=== PATIENT | female | born 1995 | race Caucasian/White ===

== ENCOUNTER 2021-09-14 17:39 | Emergency (ER) | payer OTHER, SELFPAY ==
[2021-09-14 17:47] VITALS: BP 128/87; PULSE 99; RESP 20; TEMP 36.1; O2SAT 100
--- NOTE | 2021-09-14 20:28 | ED.GENADULT ---
HPI - General Adult General Chief complaint: Headache <AYDIN Wagner Last Filed: 09/15/21 01:21> Stated complaint: htn/headahce <AYDIN Wagner Last Filed: 09/15/21 01:21> Time Seen by Provider: 09/14/21 20:02 <AYDIN Wagner Last Filed: 09/15/21 01:21> Source: patient <AYDIN Wagner Last Filed: 09/15/21 01:21> Mode of arrival: ambulatory <AYDIN Wagner Last Filed: 09/15/21 01:21> Limitations: no limitations <AYDIN Wagner Last Filed: 09/15/21 01:21> History of Present Illness HPI narrative: Patient is a 26-year-old female who presents to the ED with report of headache and high blood pressure. Patient is and currently approximately 14 weeks . Her ELECTRICAL TESTER is Dr. Baker. Patient reports having a persistent headache since Monday. She has been taking Tylenol at home without much relief of pain. She also reports having nausea due to the pain. Patient's ELECTRICAL TESTER requested her to take her blood pressure at home today at which point it was 140s over 90s. She was then referred to the ED by her OBGYN for further evaluation. Patient denies a history of previously diagnosed hypertension. She does state her blood pressure was slightly elevated at her 12-week appointment. She is not currently on any anti-hypertensive medications. Patient denies any recent cough or cold symptoms, fever, chills, vomiting, abdominal pain, vaginal bleeding, leakage of fluid, swelling. She is not feeling baby move just yet. <AYDIN Wagner Last Filed: 09/15/21 01:21> Related Data Allergies/adverse reactions: Allergies Allergy/AdvReac Type Severity Reaction Status Date / Time tree nut Allergy Verified 12/14/12 10:52 <AYDIN Wagner Last Filed: 09/15/21 01:21> Review of Systems Review of Systems: CONSTITUTIONAL: Denies fever, chills. ENT: Denies rhinorrhea, congestion, sore throat. CARDIOVASCULAR: Denies chest pain or edema. RESPIRATORY: Denies cough or dyspnea. GASTROINTESTINAL: Reports nausea. Denies abdominal pain, vomiting, or diarrhea. GENITOURINARY: Denies vaginal bleeding, leakage of fluid, dysuria or hematuria. MUSCULOSKELETAL: Denies back pain. NEUROLOGIC: Reports RAMIREZ. Denies numbness, or weakness. <Anna Shelley PA-C - Last Filed: 09/15/21 01:21> All systems reviewed & are unremarkable except as noted in HPI and below <Anna Shelley PA-C - Last Filed: 09/15/21 01:21> PMFSH Past Medical History Medical History: Medical History No pertinent past medical history <Anna Shelley PA-C - Last Filed: 09/15/21 01:21> Surgical History Surgical History: Surgical History (Updated 09/14/21 @ 20:33 by Anna Shelley PA-C) History of tonsillectomy and adenoidectomy <Anna Shelley PA-C - Last Filed: 09/15/21 01:21> Social History Social History: Social History (Updated 09/14/21 @ 20:32 by Anna Shelley PA-C) Smoking status: Never smoker <Anna Shelley PA-C - Last Filed: 09/15/21 01:21> Exam Narrative: GENERAL: Well appearing, well-nourished, non-toxic, in no acute distress. HEAD: Normocephalic, atraumatic. EYES: PERRL/EOMI, conjunctivae clear bilaterally. NECK: Supple. No adenopathy, no masses. RESPIRATORY: Airway patent, respirations nonlabored. Clear to auscultation bilaterally, no rales, rhonchi, wheezing. CARDIOVASCULAR: Regular rate and rhythm without murmurs, rubs, or gallops. Peripheral pulses 2+ and equal bilaterally. ABDOMINAL: Soft, nontender, uterus gravid, nondistended, no hepatosplenomegaly. Normoactive BS. MUSCULOSKELETAL: Moves all extremities. Strength/ROM intact without gross deformities or TTP. No edema. No calf tenderness. SKIN: Warm, dry, normal color. No rashes. NEURO: A&O X3. Speech clear. Cranial nerves II-XII grossly intact. Steady gait. No ataxic movements. PSYCHIATRIC: Appropriate mood and affect. Normal interact
[2021-09-14 20:34] VITALS: BP 130/91; PULSE 86; RESP 13; O2SAT 99
[2021-09-14] MEDS: SODIUM CHLORIDE 0.9% IV 1,000 ML 999 ML IV CONT (21:13)
[2021-09-14] MEDS: ONDANSETRON INJ 4 MG/2 ML VIAL IV PUSH (21:15)
[2021-09-14 21:24] LABS: Basophils Percent Auto 0.3 % (0.2-1.2); Eosinophils Absolute Auto 0.2 K/mm3 (0-0.3); Eosinophils Percent Auto 2.2 % (0-4.4); Hematocrit 36.1 % (37.0-47.0); Hemoglobin 12.2 g/dL (12.0-15.0); Immature Granulocyte Absolute 0.04 K/mm3 (0.00-0.031); Immature Granulocyte Percent A 0.4 % (0-0.5); Lymphocytes Percent Auto 27.2 % (18.3-44.2); Mean Corpuscular HGB Conc 33.8 g/dl (32-36); Mean Corpuscular Hemoglobin 28.4 pg (26-34); Mean Corpuscular Volume 84.1 fl (80-100); Mean Platelet Volume 9.7 fl (7.4-10.4); Monocytes Absolute Auto 0.5 K/mm3 (0.1-0.6); Monocytes Percent Auto 4.3 % (2.6-8.5); Neutrophils Absolute Auto 7.3 K/mm3 (1.3-6.7); Neutrophils Percent Auto 65.6 % (45.5-73.1); Platelet Count Result 329 k/mm3 (150-375); Red Blood Count 4.29 M/mm3 (4.2-5.4)
[2021-09-14 21:25] LABS: Appearance Urine Slightly Cloudy (Clear); Bilirubin Urine Negative (Negative); Blood Urine Negative (Negative); Color Urine Yellow (Yellow); Glucose Urine UA Negative (Negative); INR 1.1; Ketones Urine Negative (Negative); Leukocyte Esterase Ur Negative LEU/UL (Negative); Nitrate Urine Negative (Negative); Protein Urine Negative (Negative); Prothrombin Time 13.8 Seconds (11.1-14.7); Specific Grav Ur 1.025 (1.001-1.035); Urobilinogen Urine 0.2 mg/dL (<2.0)
[2021-09-14 21:26] LABS: Alanine Aminotransferase 20 U/L (6-35); Albumin Level 4.4 g/dL (3.5-5.1); Alkaline Phosphatase 66 U/L (38-126); Anion Gap 9 mmol/L (8-16); Aspartate Amino Transferase 28 U/L (14-36); Bilirubin,Total 0.3 mg/dL (0.2-1.3); Blood Urea Nitrogen 10 mg/dL (7-17); Calcium 9.2 mg/dL (8.4-10.2); Carbon Dioxide 21 mmol/L (22-30); Chloride 104 mmol/L (98-107); Estimated CRCL calculation 161 ml/min; Estimated Glomerular Filt Rate > 60; Glucose 94 mg/dL (65-110); Partial Thromboplastin Time 31.4 SECONDS (22.3-36.8); Sodium 134 mmol/L (137-145)
[2021-09-14 21:28] LABS: RBC Urine 0-2 /hpf (0-2); Squamous Epithelial Cell Urine Few /hpf (Few); WBC Urine 0-3 /hpf
[2021-09-14 21:31] LABS: Add Urine Microscopic? YES
[2021-09-14 22:43] VITALS: BP 126/81; PULSE 76; RESP 16; O2SAT 99
--- NOTE | 2021-09-16 06:45 | PC.NURSE ---
LATE ENTRY This note is being entered to document information to the patient's record. The following information was omitted on [09/14/21], by [Damian CRANDALL]. Stop time for NS infusion. Chart has been updated at this time.
== END 2021-09-14 22:13 | disposition home or self-care (01) ==
PROVIDERS: Physician Assistant; Emergency Provider General Practice; PCP Family Medicine
DX: O26.892 Other specified pregnancy related conditions, second trimester (principal); R51.9 Headache, unspecified; Z3A.14 14 weeks gestation of pregnancy
CPT/HCPCS: 36415; 80053; 81001; 85025; 85610; 85730; 96361; 96365; 96375; 99284; J0131; J2405; J7030

== ENCOUNTER 2021-12-22 17:44 | Outpatient (CLI) | payer OTHER, SELFPAY ==
[2021-12-22] VITALS (12 sets, daily range): BP systolic 129–160; BP diastolic 73–99; PULSE 71–82; TEMP 37.2
[2021-12-22 18:35] LABS: Appearance Urine Clear (Clear); Basophils Percent Auto 0.4 % (0.2-1.2); Bilirubin Urine Negative (Negative); Blood Urine Negative (Negative); Color Urine Yellow (Yellow); Eosinophils Absolute Auto 0.1 K/mm3 (0-0.3); Eosinophils Percent Auto 1.6 % (0-4.4); Glucose Urine UA Negative (Negative); Hematocrit 31.1 % (37.0-47.0); Hemoglobin 10.7 g/dL (12.0-15.0); Immature Granulocyte Absolute 0.02 K/mm3 (0.00-0.031); Immature Granulocyte Percent A 0.2 % (0-0.5); Ketones Urine Negative (Negative); Leukocyte Esterase Ur Negative LEU/UL (Negative); Lymphocytes Absolute Auto 2.49 K/mm3 (0.9-3.2); Mean Corpuscular HGB Conc 34.4 g/dl (32-36); Mean Corpuscular Hemoglobin 28.7 pg (26-34); Mean Corpuscular Volume 83.4 fl (80-100); Mean Platelet Volume 9.7 fl (7.4-10.4); Monocytes Absolute Auto 0.6 K/mm3 (0.1-0.6); Monocytes Percent Auto 6.6 % (2.6-8.5); Neutrophils Absolute Auto 5.1 K/mm3 (1.3-6.7); Neutrophils Percent Auto 61.2 % (45.5-73.1); Nitrate Urine Negative (Negative); Platelet Count Result 281 k/mm3 (150-375); Protein Urine Negative (Negative); Red Blood Count 3.73 M/mm3 (4.2-5.4); Red Cell Distribution Width 13.2 % (11.5-14.5); Urobilinogen Urine 0.2 mg/dL (<2.0); White Blood Count 8.3 K/mm3 (4.5-10.0); pH Urine 6.5 (5.0-9.0)
[2021-12-22 18:42] LABS: Bacteria Urine Trace /hpf; RBC Urine 0-2 /hpf (0-2); Squamous Epithelial Cell Urine Rare /hpf (Few); WBC Urine 0-3 /hpf
[2021-12-22 18:43] LABS: Add Urine Microscopic? NO
[2021-12-22 18:44] LABS: Alanine Aminotransferase 10 U/L (6-35); Albumin Level 3.6 g/dL (3.5-5.1); Alkaline Phosphatase 80 U/L (38-126); Anion Gap 10 mmol/L (8-16); Aspartate Amino Transferase 19 U/L (14-36); Bilirubin,Total 0.2 mg/dL (0.2-1.3); Blood Urea Nitrogen 10 mg/dL (7-17); Calcium 8.7 mg/dL (8.4-10.2); Carbon Dioxide 22 mmol/L (22-30); Chloride 102 mmol/L (98-107); Estimated Glomerular Filt Rate > 60; Glucose 72 mg/dL (65-110); Potassium 3.5 mmol/L (3.4-5.0); Sodium 134 mmol/L (137-145); Uric Acid 4.6 mg/dL (2.5-7.5)
--- NOTE | 2021-12-22 18:55 | PM.IMHP ---
H&P: HPI History of Present Illness Date/Time: 12/22/21 18:55 Chief Complaint: at 28 weeks gestation with Elevated blood pressure Narrative: pt was in office for routine appt and had 2 elevated blood pressures, hx CHTN and has not been on medication this . Denies, headache, visual changes, epigastric pain, edema. Is now back at school teaching and coaching Review of Systems Review of Systems: All systems reviewed & are unremarkable except as noted in HPI and below PMFSH Past Medical History Medical History No pertinent past medical history Surgical History Surgical History (Updated 09/14/21 @ 20:33 by Anna Santos PA-C) History of tonsillectomy and adenoidectomy Social History Social History (Updated 09/14/21 @ 20:32 by Anna Santos PA-C) Smoking status: Never smoker Meds Home Medications and Allergies Allergies Allergy/AdvReac Type Severity Reaction Status Date / Time tree nut Allergy Verified 12/14/12 10:52 Vital Signs Vital Signs - 24 hr 12/22/21 18:16 12/22/21 18:31 12/22/21 18:46 Temperature Pulse Rate 82 75 79 Blood Pressure 160/99 H 160/92 H 147/77 H Blood Pressure [Right Arm] 12/22/21 18:27 12/22/21 18:27 Temperature 37.2 C Pulse Rate 78 Blood Pressure Blood Pressure [Right Arm] 160/99 H Exam Narrative: blood pressure decreasing with rest Const: General: cooperative, healthy appearing and comfortable Skin: General skin exam: normal color Extrem: General: normal to inspection H&P: Results Labs Labs: Short CBC 12/22/21 Range/Units 18:26 WBC 8.3 (4.5-10.0) K/mm3 Hgb 10.7 L (12.0-15.0) g/dL Hct 31.1 L (37.0-47.0) % Plt Count 281 (150-375) k/mm3 BMP 12/22/21 18:26 Sodium 134 L Potassium 3.5 Chloride 102 Carbon Dioxide 22 BUN 10 Creatinine 0.60 L Glucose 72 Calcium 8.7 Liver Function 12/22/21 Range/Units 18:26 Total Bilirubin 0.2 (0.2-1.3) mg/dL AST 19 (14-36) U/L ALT 10 (6-35) U/L Alkaline Phosphatase 80 (38-126) U/L Albumin 3.6 (3.5-5.1) g/dL Urine 12/22/21 Range/Units 18:26 Urine Color Yellow (Yellow) Urine Appearance Clear (Clear) Urine pH 6.5 (5.0-9.0) Ur Specific [place] 1.010 (1.001-1.035) Urine Protein Negative (Negative) mg/dL Urine Glucose (UA) Negative (Negative) mg/dL Assessment and Plan Assessment and plan (1) Chronic hypertension: Code(s): I10 - Essential (primary) hypertension Status: Acute Plan at 28 weeks gestation CHTN with increased pressures awaiting PCR ratio Labetalol 200mg PO BID plan 24 hour at home if PCR is wnl reviewed with Dr. Baker
[2021-12-22] MEDS: LABETALOL HCL 100 MG TABLET 200 MG PO (19:12)
[2021-12-22 19:20] LABS: Creatinine Urine 47.1 mg/dL; Total Protein Urine Random 13 mg/dL; Ur Ttl Prot Creatinine Ratio 0.28 mg/mg (0-0.20)
--- NOTE | 2021-12-22 20:55 | PC.NURSE ---
Rg Chowdary CNM called to check on pt status. BPs given and P/C ratio results given. August D/C home. Follow up in office for BP on Monday, do 24hr urine this and prescription for Labetalol.
== END 2021-12-22 21:42 | disposition home or self-care (01) ==
LOC: ANHOBOP 18:49 → ANHOBPP 18:49 → ANHOBOP 18:50
PROVIDERS: PCP Family Medicine; Visit Provider Advanced Practice Midwife
DX: O13.9 Gestational [pregnancy-induced] hypertension without significant proteinuria, unspecified trimester (principal); Z3A.00 Weeks of gestation of pregnancy not specified
CPT/HCPCS: 36415; 80053; 81003; 82570; 84156; 84550; 85025; A9270; G0378; G0379

== ENCOUNTER 2021-12-23 23:54 | Outpatient (CLI) | payer OTHER, SELFPAY ==
[2021-12-24] VITALS (15 sets, daily range): BP systolic 121–156; BP diastolic 67–90; PULSE 73–107; TEMP 36.6
--- NOTE | 2021-12-24 | PC.NURSE ---
Patient states she was seen for high blood pressure here yesterday. Has 24 hour urine in progress. Developed headache today rated as 3--4. States blood pressure at home was elevated. Spoke with Dr. Baker advised to come in to be checked out.
--- NOTE | 2021-12-24 02:00 | PC.NURSE ---
0200 Dr. Baker paged. Pt has been sleeping. Awake now States feeling better since arrival.
--- NOTE | 2021-12-24 03:00 | PC.NURSE ---
Rg Chowdary notified of admission, assessment and vital signs. Pt to be discharged to home and to follow up in office this AM. Pt to bring blood pressure cuff to office for calibration.
--- NOTE | 2021-12-24 08:28 | PC.NURSE ---
Pt advised we will monitor BP and call PMD. Pt declines anything for headache. Vital signs as noted.
== END 2021-12-24 03:05 ==
LOC: ANHOBOP 12-24 00:03 → ANHOBPP 12-24 12:48
PROVIDERS: PCP Family Medicine; Visit Provider Obstetrics & Gynecology
DX: Z39.2 Encounter for routine postpartum follow-up (principal)
CPT/HCPCS: 99199

== ENCOUNTER 2021-12-24 11:34 | Outpatient (NON) | payer OTHER, SELFPAY ==
[2021-12-24 11:59] VITALS: BMI 43.3
[2021-12-24 15:24] LABS: Collection Time Urine 24 HOURS
[2021-12-24 15:26] LABS: Patient Weight 244 Lbs; Total Volume 24 Hour Urine 1800 ml
[2021-12-24 16:29] LABS: Creatinine Clearance Urine 145.4 ml/min (75-125); Creatinine Urine 84.6 mg/dL; Total Protein Urine 24 Hr 270 mg/24hr (28-141); Total Protein Urine Random 15 mg/dL
== END 2021-12-24 11:35 | disposition home or self-care (01) ==
LOC: ANHOBOP 11:36
PROVIDERS: PCP Family Medicine; Visit Provider Advanced Practice Midwife
DX: O13.9 Gestational [pregnancy-induced] hypertension without significant proteinuria, unspecified trimester (principal); Z3A.00 Weeks of gestation of pregnancy not specified
CPT/HCPCS: 81050; 82575; 84156

== ENCOUNTER 2022-01-14 10:58 | Outpatient (CLI) | payer OTHER, SELFPAY ==
[2022-01-14] VITALS (8 sets, daily range): BP systolic 129–144; BP diastolic 79–95; PULSE 75–98; BMI 42.0
--- NOTE | ~2022-01-14 | US_ITS ---
EXAMINATION: US OB BPP wo non-stress DATE: 01/14/2022 13:25 INDICATION: Hypertension and nonreactive tracing during third trimester TECHNIQUE: Real-time pelvic ultrasound was performed. The interpreting radiologist was not present fo r the study. COMPARISON: None. FINDINGS: There is a single living fetus in vertex presentation. The placenta is anterior. heart rate is 142 beats per minute (bpm). Biophysical profile performed by the technologist: breathing (30 sec sustained breathing in 30 minutes): 2 out of 2 movement (3 gross body movements in 30 minutes): 2 out of 2 tone (one episode of tnkghff-nuwdfdmsf-knaaeoa limb movement): 2 out of 2 Amniotic fluid pocket (2 cm): 2 out of 2 Total score: 8 out of 8 IMPRESSION: 1. Single living fetus in vertex presentation. 2. Biophysical profile 8 out of 8. Reviewed, dictated and finalized at location B.
--- NOTE | 2022-01-14 11:26 | LDADM ---
This patient, Ange Whaley, was admitted to [facility] Post [facility] on at 10:58. Plans for labor, pain management and were discussed with patient. Patient/family oriented to hospital policies and general routines including ID bracelet, bed and alarms, visiting hours, pain management, procedures, bathroom and other care routines, personal items, smoking policy, room service/diet and guest tray routines, security routines, and visiting hours. Patient/Family are encouraged to report perceived risks to care and to ask questions if they do not understand what they are told or what they should do. See OBIX for further documentation.
[2022-01-14 11:31] LABS: Basophils Percent Auto 0.3 % (0.2-1.2); Eosinophils Absolute Auto 0.1 K/mm3 (0-0.3); Hematocrit 33.6 % (37.0-47.0); Hemoglobin 11.4 g/dL (12.0-15.0); Immature Granulocyte Absolute 0.02 K/mm3 (0.00-0.031); Immature Granulocyte Percent A 0.3 % (0-0.5); Lymphocytes Absolute Auto 1.61 K/mm3 (0.9-3.2); Lymphocytes Percent Auto 20.9 % (18.3-44.2); Mean Corpuscular HGB Conc 33.9 g/dl (32-36); Mean Corpuscular Hemoglobin 28.6 pg (26-34); Mean Corpuscular Volume 84.4 fl (80-100); Mean Platelet Volume 10.2 fl (7.4-10.4); Monocytes Absolute Auto 0.2 K/mm3 (0.1-0.6); Neutrophils Absolute Auto 5.8 K/mm3 (1.3-6.7); Neutrophils Percent Auto 74.5 % (45.5-73.1); Platelet Count Result 244 k/mm3 (150-375); Red Blood Count 3.98 M/mm3 (4.2-5.4); Red Cell Distribution Width 13.1 % (11.5-14.5); White Blood Count 7.7 K/mm3 (4.5-10.0)
[2022-01-14 11:44] LABS: Alanine Aminotransferase 16 U/L (6-35); Albumin Level 3.7 g/dL (3.5-5.1); Alkaline Phosphatase 83 U/L (38-126); Anion Gap 13 mmol/L (8-16); Aspartate Amino Transferase 19 U/L (14-36); Bilirubin,Total 0.2 mg/dL (0.2-1.3); Blood Urea Nitrogen 13 mg/dL (7-17); Calcium 8.6 mg/dL (8.4-10.2); Carbon Dioxide 20 mmol/L (22-30); Chloride 104 mmol/L (98-107); Estimated CRCL calculation 121 ml/min; Estimated Glomerular Filt Rate > 60; Glucose 144 mg/dL (65-110); Potassium 3.6 mmol/L (3.4-5.0); Sodium 137 mmol/L (137-145); Uric Acid 6.5 mg/dL (2.5-7.5)
[2022-01-14 12:02] LABS: Creatinine Urine 337.3 mg/dL; Total Protein Urine Random 11 mg/dL; Ur Ttl Prot Creatinine Ratio 0.03 mg/mg (0-0.20)
[2022-01-14 12:36] LABS: Appearance Urine Slightly Cloudy (Clear); Bilirubin Urine 1+ (Negative); Blood Urine Negative (Negative); Color Urine Yellow (Yellow); Glucose Urine UA Negative (Negative); Ketones Urine Trace mg/dL (Negative); Leukocyte Esterase Ur Negative LEU/UL (NEGATIVE); Nitrate Urine Negative (Negative); Protein Urine 1+ mg/dL (Negative); Specific Grav Ur >= 1.030 (1.001-1.035); Urobilinogen Urine 0.2 mg/dL (<2.0); pH Urine 5.5 (5.0-9.0)
[2022-01-14 12:50] LABS: Bacteria Urine 1+ /hpf; Mucus Urine Few /lpf; Squamous Epithelial Cell Urine Many /hpf (Few); WBC Urine 21-30 /hpf (0-3)
[2022-01-14 12:51] LABS: Add Urine Microscopic? YES
== END 2022-01-14 13:55 | disposition home or self-care (01) ==
LOC: ANHOBOP 11:02 → ANHOBPP 11:03
PROVIDERS: PCP Family Medicine; Visit Provider Advanced Practice Midwife
DX: O13.9 Gestational [pregnancy-induced] hypertension without significant proteinuria, unspecified trimester (principal); Z3A.00 Weeks of gestation of pregnancy not specified
CPT/HCPCS: 36415; 59025; 76819; 80053; 81001; 82570; 84156; 84550; 85025; 87086; 87088; 99199

== ENCOUNTER 2022-01-17 11:27 | Outpatient (CLI) | payer OTHER, SELFPAY ==
[2022-01-17 11:50] VITALS: BP 132/96; PULSE 79
[2022-01-17 12:01] VITALS: BP 147/97; PULSE 78
[2022-01-17 12:16] VITALS: BP 148/91; PULSE 75
[2022-01-17] MEDS: METOCLOPRAMIDE HCL INJ 10 MG/2 ML VIAL IV PUSH (12:43)
[2022-01-17] MEDS: diphenhydrAMINE HCl INJ 50 MG/ML VIAL 25 MG IV PUSH (12:43)
[2022-01-17] MEDS: LACTATED RINGERS 1,000 ML 999 ML IV CONT (12:44)
[2022-01-17 12:46] LABS: Collection Time Urine 24 HOURS
[2022-01-17 12:49] VITALS: BP 132/96; PULSE 79
[2022-01-17 12:54] LABS: Total Volume 24 Hour Urine 1300 ml
[2022-01-17 12:58] LABS: Estimated Glomerular Filt Rate > 60
[2022-01-17 13:01] VITALS: BP 148/91; PULSE 70
[2022-01-17 13:01] LABS: Creatinine Urine 113.7 mg/dL; Patient Weight 235 Lbs; Total Protein Urine 24 Hr 390 mg/24hr (28-141); Total Protein Urine Random 30 mg/dL
[2022-01-17 13:07] LABS: Creatinine Clearance Urine 121.5 ml/min (75-125)
--- NOTE | 2022-01-17 13:15 | PC.NURSE ---
Called Rg Chowdary CNM reported BP of 140s/90s. Headaches are improving after medication. okay to discharge. keep appointment for follow up.
--- NOTE | 2022-01-17 13:23 | PC.NURSE ---
chai Brennan reported 24 hour urine which was obtained after pt discharge. NO new orders.
== END 2022-01-17 13:20 | disposition home or self-care (01) ==
LOC: ANHOBOP 11:34 → ANHOBPP 11:35
PROVIDERS: Advanced Practice Midwife; PCP Family Medicine; Visit Provider Obstetrics & Gynecology
DX: O13.9 Gestational [pregnancy-induced] hypertension without significant proteinuria, unspecified trimester (principal); Z3A.00 Weeks of gestation of pregnancy not specified
CPT/HCPCS: 36415; 59025; 81050; 82565; 82575; 84156; 96374; 96375; 99199; J1200; J2765; J7120

== ENCOUNTER 2022-01-19 11:46 | Outpatient (CLI) | payer OTHER, SELFPAY ==
[2022-01-19] VITALS (35 sets, daily range): BP systolic 140–186; BP diastolic 82–113; PULSE 62–91; RESP 16; TEMP 36.5–37.1; O2SAT 84–100; BMI 42.1
--- NOTE | ~2022-01-19 | US_ITS ---
. EXAMINATION: US OB BPP wo non-stress DATE: 01/19/2022 14:29 INDICATION: Hypertension in . Third trimester. TECHNIQUE: Real-time pelvic ultrasound was performed. COMPARISON: Ultrasound 01/14/2022 FINDINGS: There is a single living fetus in vertex presentation. The placenta is anterior. heart rate is 159 beats per minute (bpm). Biophysical profile performed by the technologist: breathing (30 sec sustained breathing in 30 minutes): 2 out of 2 movement (3 gross body movements in 30 minutes): 2 out of 2 tone (one episode of yrpkmis-sugspvuqf-ptjqvaq limb movement): 2 out of 2 Amniotic fluid pocket (2 cm): 2 out of 2 Total score: 8 out of 8 IMPRESSION: 1. Single living fetus in vertex presentation. 2. Biophysical profile 8 out of 8. Reviewed, dictated and finalized at location A.
[2022-01-19 12:38] LABS: Basophils Percent Auto 0.3 % (0.2-1.2); Eosinophils Absolute Auto 0.1 K/mm3 (0-0.3); Eosinophils Percent Auto 1.3 % (0-4.4); Hematocrit 32.9 % (37.0-47.0); Hemoglobin 11.1 g/dL (12.0-15.0); Immature Granulocyte Absolute 0.02 K/mm3 (0.00-0.031); Immature Granulocyte Percent A 0.3 % (0-0.5); Lymphocytes Absolute Auto 1.91 K/mm3 (0.9-3.2); Lymphocytes Percent Auto 25.3 % (18.3-44.2); Mean Corpuscular HGB Conc 33.7 g/dl (32-36); Mean Corpuscular Hemoglobin 29.1 pg (26-34); Mean Corpuscular Volume 86.1 fl (80-100); Mean Platelet Volume 10.2 fl (7.4-10.4); Monocytes Absolute Auto 0.4 K/mm3 (0.1-0.6); Monocytes Percent Auto 5.2 % (2.6-8.5); Neutrophils Absolute Auto 5.1 K/mm3 (1.3-6.7); Neutrophils Percent Auto 67.6 % (45.5-73.1); Platelet Count Result 237 k/mm3 (150-375); Red Blood Count 3.82 M/mm3 (4.2-5.4); Red Cell Distribution Width 13.2 % (11.5-14.5); White Blood Count 7.5 K/mm3 (4.5-10.0)
[2022-01-19 12:53] LABS: Alanine Aminotransferase 14 U/L (6-35); Albumin Level 3.6 g/dL (3.5-5.1); Alkaline Phosphatase 89 U/L (38-126); Anion Gap 12 mmol/L (8-16); Aspartate Amino Transferase 19 U/L (14-36); Bilirubin,Total 0.2 mg/dL (0.2-1.3); Blood Urea Nitrogen 12 mg/dL (7-17); Calcium 8.8 mg/dL (8.4-10.2); Carbon Dioxide 19 mmol/L (22-30); Chloride 105 mmol/L (98-107); Estimated Glomerular Filt Rate > 60; Glucose 84 mg/dL (65-110); Potassium 3.9 mmol/L (3.4-5.0); Sodium 136 mmol/L (137-145); Uric Acid 6.2 mg/dL (2.5-7.5)
--- NOTE | 2022-01-19 13:05 | PC.NURSE ---
Last BP is elevated; pt sitting up eating lunch.
--- NOTE | 2022-01-19 13:35 | PC.NURSE ---
FHT's intermittent due to pt movement with eating. Monitor adjusted.
[2022-01-19] MEDS: BETAMETHASONE SOD PHOS/ACETATE 30 MG/5 ML VIAL 12 MG IM (13:38)
--- NOTE | 2022-01-19 13:46 | PC.NURSE ---
Repeat BP with pt resting after eating is 145/82. BPP ordered.
--- NOTE | 2022-01-19 13:55 | PC.NURSE ---
FHR signal intermittent due to pt position change. Adjusted monitor and FHT's 135. Off monitor and to U/S per wheelchair.
--- NOTE | 2022-01-19 14:56 | PC.NURSE ---
Rg Chowdary CNM informed pt's tracing was not reactive, but BPP is 8/8. Discussed all BP's including elevated ones while pt was eating. Informed of lab results. Discussed pt is due for her Labetalol 300 mg po that she takes TID. Order received to give Labetalol and then 30 mins later to start on Procardia XL. OK to take baby off monitor.
[2022-01-19] MEDS: LABETALOL HCL 100 MG TABLET 300 MG PO (15:18)
[2022-01-19] MEDS: NIFEdipine 30 MG TAB.ER.24 PO (15:52)
--- NOTE | 2022-01-19 16:03 | PC.NURSE ---
Rg GARDUNOM informed of severe range BP's. CNM will speak with physician and call back with orders.
--- NOTE | 2022-01-19 16:18 | PC.NURSE ---
Rg Chowdary CNM called back with orders for IV Labetalol, Magnesium sulfate, and will come arrange for transfer to [facility]
--- NOTE | 2022-01-19 16:30 | PC.NURSE ---
Rg Chowdary CNM on unit and has arranged transfer to [facility]
--- NOTE | 2022-01-19 16:30 | PM.IMHP ---
H&P: HPI History of Present Illness Date/Time: 01/19/22 16:30 Chief Complaint: pt admitted for observation for elevated blood pressure in the office. pt diagnosed with chronic HTN and has been on labetalol tid. recent 24 hour urine was 390. pt was given procardia 30 mg xl on admission and her dose of afternoon labetalol, blood pressures continue to rise and are now severe range and hypertensive protocol and magnesium sulfate started per Dr. peterson. pt has a headache that she has had for a few weeks, does get some relief with fioricet, and currently rates it at a 1 . also complicated by placenta with marginal cord insertion and @ vessel cord, asthma, elevated one hour glucose. pt was unable to complete the 3 hour and for the next 2 weeks check qid x 2 weeks, normal blood sugars noted with in the second week and discontinued testing. Anxiety treated with buspirone 7.5 mg bid. [facility] Past Medical History Medical History No pertinent past medical history Surgical History Surgical History (Updated 09/14/21 @ 20:33 by Anna Santos PA-C) History of tonsillectomy and adenoidectomy Social History Social History (Updated 09/14/21 @ 20:32 by Anna Santos PA-C) Smoking status: Never smoker Meds Home Medications and Allergies Home Medications Medication Instructions Recorded Confirmed Type labetalol 200 mg tablet 300 mg PO TID 01/14/22 01/19/22 History metoclopramide HCl 10 mg tablet 10 mg PO Q6H PRN Nausea #20 tabs 01/17/22 01/19/22 Rx (Reglan) buspirone 15 mg tablet 15 mg PO DAILY 01/19/22 01/19/22 History vit no.95-ferrous 1 tablet PO DAILY 01/19/22 01/19/22 History fumarate 28 mg-folic acid 800 mcg tablet () sertraline 200 mg capsule 200 mg PO DAILY 01/19/22 01/19/22 History Allergies Allergy/AdvReac Type Severity Reaction Status Date / Time tree nut Allergy Mild Itching Verified 01/19/22 13:43 Vital Signs Vital Signs - 24 hr 01/19/22 12:03 01/19/22 12:16 01/19/22 12:30 Pulse Rate 85 74 72 Blood Pressure 140/92 H 142/86 H 156/95 H 01/19/22 12:46 01/19/22 13:01 01/19/22 13:12 Pulse Rate 71 71 77 Blood Pressure 154/89 H 163/95 H 164/108 H 01/19/22 13:16 01/19/22 13:31 01/19/22 13:46 Pulse Rate 76 72 72 Blood Pressure 167/113 H 152/96 H 145/82 H 01/19/22 15:17 01/19/22 15:31 01/19/22 15:53 Pulse Rate 74 70 65 Blood Pressure 154/106 H 165/99 H 179/102 H 01/19/22 16:01 01/19/22 16:16 01/19/22 16:19 Pulse Rate 65 67 69 Blood Pressure 173/102 H 181/92 H 182/104 H 01/19/22 15:18 01/19/22 13:46 Pulse Rate 74 Blood Pressure 145/82 H Exam Const: General: cooperative, healthy appearing and comfortable Resp: Effort & Inspection: normal respiratory effort and able to speak in complete sentences Cardio: Rate: regular rate Rhythm: regular rhythm GI: Other: gravid Skin: General skin exam: normal color H&P: Results Labs Labs: Short CBC 01/19/22 Range/Units 12:29 WBC 7.5 (4.5-10.0) K/mm3 Hgb 11.1 L (12.0-15.0) g/dL Hct 32.9 L (37.0-47.0) % Plt Count 237 (150-375) k/mm3 [facility] 01/19/22 12:28 Sodium 136 L Potassium 3.9 Chloride 105 Carbon Dioxide 19 L BUN 12 Creatinine 0.70 Glucose 84 Calcium 8.8 Liver Function 01/19/22 Range/Units 12:28 Total Bilirubin 0.2 (0.2-1.3) mg/dL AST 19 (14-36) U/L ALT 14 (6-35) U/L Alkaline Phosphatase 89 (38-126) U/L Albumin 3.6 (3.5-5.1) g/dL Assessment and Plan Assessment and plan (1) Preeclampsia: Code(s): O14.90 - Unspecified pre-eclampsia, unspecified trimester Status: Acute (2) Chronic hypertension: Code(s): I10 - Essential (primary) hypertension Status: Acute Plan 1. at 32. 4 weeks gestation 2. chronic HTN with superimposed preeclampsia hypertensive protocol magnesium sulfate 3. asthma 4. 2 vessel cord 5, david
--- NOTE | 2022-01-19 16:35 | PC.NURSE ---
Pt informed of plan of care and IV Labetalol and Magnesium sulfate including possible side effects explained to pt; verbalizes understanding.
[2022-01-19] MEDS: LACTATED RINGERS 1,000 ML 50 ML IV CONT (16:44)
[2022-01-19] MEDS: LABETALOL HCL INJ 100 MG/20 ML VIAL 20 MG IV PUSH (16:48)
[2022-01-19] MEDS: MAGNESIUM SULF 4 GM/WATER100ML 4 GM/100 ML BAG IVPB (17:04)
--- NOTE | 2022-01-19 17:21 | PC.NURSE ---
Rg Chowdary CNM informed of pt's c/o heaviness in chest and nausea. Lungs remain clear bilaterally. O2 sat 99%, Resp 16 and regular. Orders received for Zofran and Pepcid.
[2022-01-19] MEDS: ONDANSETRON INJ 4 MG/2 ML VIAL IV PUSH (17:30)
[2022-01-19] MEDS: FAMOTIDINE 20 MG/2 ML VIAL IV PUSH (17:32)
--- NOTE | 2022-01-19 17:39 | PC.NURSE ---
Rg Chowdary CNM informed pt's chest heaviness resolved after having emesis. Magnesium sulfate 4gm bolus dose has infused. Current BP is 157/106 which is just under the parameters for an additional dose of IV Labetalol, but transport team here and getting ready to go. Order received for an additional dose of Labetalol IV now.
--- NOTE | 2022-01-19 17:42 | PC.NURSE ---
Repeat BP prior to giving Labetalol is 147/86; IV Labetalol dose held.
--- NOTE | 2022-01-19 17:50 | PC.NURSE ---
Pt up to void- 250 ml. Pt assisted onto transport stretcher.
== END 2022-01-19 17:58 | disposition home or self-care (01) ==
LOC: ANHOBOP 11:52 → ANHOBPP 11:52
PROVIDERS: PCP Family Medicine; Visit Provider Advanced Practice Midwife
DX: O14.90 Unspecified pre-eclampsia, unspecified trimester (principal); Z3A.00 Weeks of gestation of pregnancy not specified
CPT/HCPCS: 36415; 59025; 76819; 80053; 84550; 85025; 96365; 96372; 96375; 96376; 99199; A9270; J0702; J2405; J3475; J7120

== ENCOUNTER 2024-04-24 12:42 | Outpatient (RCR) | payer OTHER, SELFPAY ==
[2024-04-24 13:29] LABS: Basophils Percent Auto 0.1 % (0.2-1.2); Eosinophils Absolute Auto 0.2 K/mm3 (0-0.3); Eosinophils Percent Auto 1.8 % (0-4.4); Hematocrit 32.2 % (37.0-47.0); Hemoglobin 11.2 g/dL (12.0-15.0); Immature Granulocyte Absolute 0.02 K/mm3 (0.00-0.031); Immature Granulocyte Percent A 0.2 % (0-0.5); Lymphocytes Absolute Auto 1.44 K/mm3 (0.9-3.2); Lymphocytes Percent Auto 17.2 % (18.3-44.2); Mean Corpuscular HGB Conc 34.8 g/dl (32-36); Mean Corpuscular Hemoglobin 29.3 pg (26-34); Mean Corpuscular Volume 84.3 fl (80-100); Mean Platelet Volume 9.9 fl (7.4-10.4); Monocytes Absolute Auto 0.4 K/mm3 (0.1-0.6); Monocytes Percent Auto 4.3 % (2.6-8.5); Neutrophils Absolute Auto 6.4 K/mm3 (1.3-6.7); Neutrophils Percent Auto 76.4 % (45.5-73.1); Platelet Count Result 249 k/mm3 (150-375); Red Blood Count 3.82 M/mm3 (4.2-5.4); Red Cell Distribution Width 12.5 % (11.5-14.5); White Blood Count 8.4 K/mm3 (4.5-10.0)
[2024-04-24 13:40] LABS: Alanine Aminotransferase 28 U/L (6-35); Albumin Level 3.7 g/dL (3.5-5.1); Alkaline Phosphatase 92 U/L (38-126); Anion Gap 5 mmol/L (4-12); Aspartate Amino Transferase 25 U/L (14-36); Bilirubin,Total 0.4 mg/dL (0.2-1.3); Blood Urea Nitrogen 15 mg/dL (7-17); Calcium 9.5 mg/dL (8.4-10.2); Carbon Dioxide 24 mmol/L (22-30); Chloride 106 mmol/L (98-107); Estimated Glomerular Filt Rate > 60; Glucose 99 mg/dL (65-110); Potassium 3.5 mmol/L (3.4-5.0); Sodium 135 mmol/L (137-145)
[2024-04-24 14:16] VITALS: BP 141/79; PULSE 86
== END 2024-07-23 23:59 | disposition home or self-care (01) ==
LOC: ANHOBOP 12:42
PROVIDERS: Advanced Practice Midwife; Visit Provider Obstetrics & Gynecology
DX: O24.419 Gestational diabetes mellitus in pregnancy, unspecified control (principal); O16.3 Unspecified maternal hypertension, third trimester; Z3A.31 31 weeks gestation of pregnancy
CPT/HCPCS: 36415; 59025; 80053; 84550; 85025

== ENCOUNTER 2024-05-15 15:56 | Observation (INO) | payer OTHER, SELFPAY ==
[2024-05-15] VITALS (38 sets, daily range): BP systolic 145–178; BP diastolic 94–115; PULSE 74–98; RESP 18; TEMP 36; O2SAT 97–99; BMI 40.1
[2024-05-15 16:56] LABS: Basophils Percent Auto 0.2 % (0.2-1.2); Eosinophils Absolute Auto 0.1 K/mm3 (0-0.3); Eosinophils Percent Auto 0.9 % (0-4.4); Hematocrit 31.5 % (37.0-47.0); Hemoglobin 10.8 g/dL (12.0-15.0); Immature Granulocyte Absolute 0.03 K/mm3 (0.00-0.031); Immature Granulocyte Percent A 0.3 % (0-0.5); Lymphocytes Absolute Auto 2.03 K/mm3 (0.9-3.2); Lymphocytes Percent Auto 23.2 % (18.3-44.2); Mean Corpuscular HGB Conc 34.3 g/dl (32-36); Mean Corpuscular Hemoglobin 28.7 pg (26-34); Mean Corpuscular Volume 83.8 fl (80-100); Mean Platelet Volume 10.2 fl (7.4-10.4); Monocytes Absolute Auto 0.6 K/mm3 (0.1-0.6); Monocytes Percent Auto 6.4 % (2.6-8.5); Platelet Count Result 227 k/mm3 (150-375); Red Blood Count 3.76 M/mm3 (4.2-5.4); Red Cell Distribution Width 12.5 % (11.5-14.5); White Blood Count 8.8 K/mm3 (4.5-10.0)
[2024-05-15 17:04] LABS: Add Urine Microscopic? YES; Appearance Urine Cloudy (Clear); Bacteria Urine Rare /hpf; Bilirubin Urine Negative (Negative); Blood Urine Negative (Negative); Color Urine Yellow (Yellow); Glucose Urine UA Negative (Negative); Ketones Urine Negative (Negative); Leukocyte Esterase Ur Trace LEU/UL (Negative); Nitrate Urine Negative (Negative); Non Pathogenic Casts 0-2; Protein Urine Negative (Negative); RBC Urine 0-2 /hpf (0-2); Specific Grav Ur 1.018 (1.001-1.035); Squamous Epithelial Cell Urine Occasional /hpf (Few); Urobilinogen Urine 0.2 mg/dL (<2.0); pH Urine 6.5 (5.0-9.0)
[2024-05-15 17:08] LABS: Alanine Aminotransferase 46 U/L (6-35); Albumin Level 3.5 g/dL (3.5-5.1); Alkaline Phosphatase 114 U/L (38-126); Anion Gap 7 mmol/L (4-12); Aspartate Amino Transferase 30 U/L (14-36); Bilirubin,Total 0.5 mg/dL (0.2-1.3); Blood Urea Nitrogen 14 mg/dL (7-17); Calcium 8.9 mg/dL (8.4-10.2); Carbon Dioxide 24 mmol/L (22-30); Chloride 104 mmol/L (98-107); Estimated Glomerular Filt Rate > 60; Glucose 85 mg/dL (65-110); Potassium 3.7 mmol/L (3.4-5.0); Sodium 135 mmol/L (137-145); Uric Acid 4.3 mg/dL (2.5-7.5)
--- NOTE | 2024-05-15 17:26 | PC.NURSE ---
Dr. Ford informed of CBC, CMP, and uric acid results. Urine total protein /creatinine clearance not back yet. Pt's last BP was in the severe range. states Rg Chowdary CNM will be calling back on this pt.
--- NOTE | 2024-05-15 17:37 | PC.NURSE ---
Rg Chowdary CNM informed of severe BP's now. Total protein/ creatinine ratio still pending. Order received to follow severe BP protocol using Labetalol. CNM aware pt has a history of asthma, but hasn't required inhaler during . Also, to start Magnesium Sulfate. CNM will come in to transfer pt.
[2024-05-15 17:43] LABS: Creatinine Urine 109.3 mg/dL; Total Protein Urine Random 17 mg/dL; Ur Ttl Prot Creatinine Ratio 0.16 mg/mg (0-0.20)
--- NOTE | 2024-05-15 17:57 | PM.IMHP ---
H&P: HPI History of Present Illness Date/Time: 05/15/24 17:57 Chief Complaint: Pt presents to for evaluation for elevated blood pressure at [facility] office today 29 y.o. at 34.4 weeks gestation. Pt presents with elevated blood pressure, denies headache, visual changes, epigastric pain. complicated by history of 33.1 week delivery with preeclampsia with severe features by primary section. Chronic HTN has been currently managed with labetalol 300mg TID, also diagnosed with gestational diabetes and takes 10 units of insulin at . hx asthma no current meds, obesity, and anxiety managed with wellbutrin and sertraline daily. previous history of a leep and appendectomy. Review of Systems Review of Systems: All systems reviewed & are unremarkable except as noted in HPI and below [facility] Past Medical History Medical History No pertinent past medical history Surgical History Surgical History (Updated 09/14/21 @ 20:33 by Anna Santos PA-C) History of tonsillectomy and adenoidectomy Social History Social History (Updated 09/14/21 @ 20:32 by Anna Santos PA-C) Smoking status: Never smoker Meds Home Medications and Allergies Home Medications ?Medication ?Instructions ?Recorded ?Confirmed ?Type labetalol 200 mg tablet 300 mg PO TID 01/14/22 01/19/22 History metoclopramide HCl 10 mg tablet 10 mg PO Q6H PRN Nausea #20 tabs 01/17/22 01/19/22 Rx (Reglan) buspirone 15 mg tablet 7.5 mg PO DAILY 01/19/22 01/19/22 History vit no.95-ferrous 1 tablet PO DAILY 01/19/22 01/19/22 History fumarate 28 mg-folic acid 800 mcg tablet () sertraline 200 mg capsule 200 mg PO DAILY 01/19/22 01/19/22 History Allergies Allergy/AdvReac Type Severity Reaction Status Date / Time tree nut Allergy Mild Itching Verified 05/15/24 18:25 Vital Signs Vital Signs - 24 hr 05/15/24 16:47 05/15/24 17:01 05/15/24 17:16 Pulse Rate 85 85 79 Blood Pressure 157/101 H 157/107 H 164/97 H 05/15/24 17:31 05/15/24 17:46 Pulse Rate 92 92 Blood Pressure 159/115 H 178/109 H Exam Const: General: cooperative, healthy appearing and other (anxious) Chest: Chest palpation & inspection: normal inspection of the chest Resp: Effort & Inspection: normal respiratory effort Cardio: Rate: regular rate GI: Other: soft/gravid Back/Spine/Pelvis: Back: no CVA tenderness Skin: General skin exam: normal color Neuro: General: patient oriented x3 Extrem: General: normal to inspection H&P: Results Labs Labs: Short CBC 05/15/24 Range/Units 16:44 WBC 8.8 (4.5-10.0) K/mm3 Hgb 10.8 L (12.0-15.0) g/dL Hct 31.5 L (37.0-47.0) % Plt Count 227 (150-375) k/mm3 BMP 05/15/24 16:44 Sodium 135 L Potassium 3.7 Chloride 104 Carbon Dioxide 24 BUN 14 Creatinine 0.76 Glucose 85 Calcium 8.9 Liver Function 05/15/24 Range/Units 16:44 Total Bilirubin 0.5 (0.2-1.3) mg/dL AST 30 (14-36) U/L ALT 46 H (6-35) U/L Alkaline Phosphatase 114 (38-126) U/L Albumin 3.5 (3.5-5.1) g/dL Urine 05/15/24 Range/Units 16:44 Urine Color Yellow (Yellow) Urine Appearance Cloudy H (Clear) Urine pH 6.5 (5.0-9.0) Ur Specific [place] 1.018 (1.001-1.035) Urine Protein Negative (Negative) mg/dL Urine Glucose (UA) Negative (Negative) mg/dL Assessment and Plan Assessment and plan (1) Preeclampsia: Code(s): O14.90 - Unspecified pre-eclampsia, unspecified trimester Status: Acute (2) Chronic hypertension: Code(s): I10 - Essential (primary) hypertension Status: Acute (3) Gestational diabetes: Code(s): O24.419 - Gestational diabetes mellitus in , unspecified control Status: Acute Plan chronic htn with superimposed preeclampsia co-managing with dr. peterson started magnesium sulfate and labetalol IV gestational diabetes insulin 10 units at hs anxiety continue wellbutrin and sertraline daily
[2024-05-15] MEDS: LACTATED RINGERS 1,000 ML 75 ML IV CONT (18:05)
[2024-05-15] MEDS: LABETALOL HCL INJ 100 MG/20 ML VIAL 20 MG IV PUSH (18:10)
[2024-05-15] MEDS: LABETALOL HCL INJ 100 MG/20 ML VIAL 40 MG IV PUSH (18:28)
[2024-05-15] MEDS: MAGNESIUM SULF 4 GM/WATER100ML 4 GM/100 ML BAG IVPB (18:33)
[2024-05-15] MEDS: ONDANSETRON INJ 4 MG/2 ML VIAL IV PUSH (18:39)
[2024-05-15] MEDS: MAGNESIUM SULF 20GM/WATER500ML 500 ML 50 MG IV CONT (19:03)
--- NOTE | 2024-05-15 19:13 | PC.NURSE ---
Report given to Sangita Ovalles RN at [place]
--- NOTE | 2024-05-15 19:23 | OBADM ---
This patient, Ange Whaley, admitted to the OB room OB Post 115 for observation. Patient/family oriented to hospital policies and general routines including ID bracelet, bed and alarms, visiting hours, pain management, procedures, bathroom and other care routines, personal items, smoking policy, room service/diet, and visiting hours. Patient/Family are encouraged to report perceived risks to care and to ask questions if they do not understand what they are told or what they should do.
--- NOTE | 2024-05-16 08:07 | P.DS_ITS ---
DS: Admitting Diagnosis Discharge Date 05/16/24 Admitting Diagnosis term OB - DS: Summary OB Procedures : None OB Procedures Intrapartum: Spontaneous Vag Delivery OB Procedures: : None Time Spent with Patient Time attestation: Total time spent providing and/or coordinating discharge services: DS: Data Data Completed and Pending Labs on day of discharge: Labs from last 24 hours 05/15/24 16:44 WBC 8.8 RBC 3.76 L Hgb 10.8 L Hct 31.5 L MCV 83.8 MCH 28.7 MCHC 34.3 RDW 12.5 Plt Count 227 MPV 10.2 Immature Gran % (Auto) 0.3 Neut % (Auto) 69.0 Lymph % (Auto) 23.2 [place] % (Auto) 6.4 Eos % (Auto) 0.9 Baso % (Auto) 0.2 Lymph # (Auto) 2.03 [place] # (Auto) 0.6 Eos # (Auto) 0.1 Baso # (Auto) 0.0 Abs Immat Gran (auto) 0.03 Absolute Neuts (auto) 6.0 Absolute Nucleated RBC 0.000 Nucleated RBC % 0.0 Sodium 135 L Potassium 3.7 Chloride 104 Carbon Dioxide 24 Anion Gap 7 BUN 14 Creatinine 0.76 Estim Creat Clear Calc Not Reportable Estimated GFR > 60 Glucose 85 Uric Acid 4.3 Calcium 8.9 Total Bilirubin 0.5 AST 30 ALT 46 H Alkaline Phosphatase 114 Total Protein 7.0 Albumin 3.5 Urine Color Yellow Urine Appearance Cloudy H Urine pH 6.5 Ur Specific [place] 1.018 Urine Protein Negative Urine Glucose (UA) Negative Urine Ketones Negative Ur Blood (Man) Negative Urine Nitrate Negative Urine Bilirubin Negative Urine Urobilinogen 0.2 Leukocyte Esterase Rfl Trace H Urine RBC 0-2 Urine WBC 6-10 H Ur Squamous Epith Cells Occasional Urine Bacteria Rare Urine Casts 0-2 U Random Total Protein 17 Urine Creatinine 109.3 Protein/Creat Ratio 2 0.16 Discharge Plan Discharge Discharging Clinician: Salvador Baker Patient Disposition: Home, Self-Care Activity: pelvic rest Diet: regular Patient Instructions: Antibiotic Form Patient Language: Cambodian Stand Alone Forms: General Discharge Information Follow-up/Referrals: Salvador Baker MD [Physician] - Discharge Medications: Continued PNV cmb#95-ferrous fumarate-FA [] 28 mg iron- 800 mcg Tablet 1 tablet PO DAILY sertraline 200 mg Capsule 200 mg PO DAILY labetalol 100 mg tablet 100 mg PO TID aspirin 81 mg tablet,chewable 162 mg PO DAILY bupropion HCl 300 mg tablet extended release 24 hr 300 mg PO DAILY Humulin N NPH Insulin KwikPen 100 unit/mL (3 mL) insulin pen 10 unit SUBCUT HS Date of admission: 05/15/24 15:56 Primary Care Provider: UNKNOWN,DOCTOR Admitting Provider: Claudy Ford Attending physician on admission: Claudy Ford Condition: Stable
== END 2024-05-15 20:21 | disposition short-term general hospital (02) ==
PROVIDERS: Advanced Practice Midwife; Admitting Provider Obstetrics & Gynecology; Visit Provider Obstetrics & Gynecology
DX: O11.3 Pre-existing hypertension with pre-eclampsia, third trimester (principal); O10.913 Unspecified pre-existing hypertension complicating pregnancy, third trimester; O24.414 Gestational diabetes mellitus in pregnancy, insulin controlled; O99.343 Other mental disorders complicating pregnancy, third trimester; F41.9 Anxiety disorder, unspecified; Z3A.34 34 weeks gestation of pregnancy; Z79.899 Other long term (current) drug therapy
CPT/HCPCS: 36415; 80053; 81001; 82570; 84156; 84550; 85025; 87086; J2405; J3475; J7120